=== PATIENT | male | born 1990 | race Caucasian/White ===

== ENCOUNTER 2022-12-30 14:12 | Outpatient (AMB) | payer OTHER, SELFPAY ==
[2022-12-30 14:22] VITALS: BP 130/88; PULSE 76; O2SAT 98; BMI 32.7
--- NOTE | 2022-12-30 14:22 | MHC.PC.OV ---
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 Will order labs. HTN: will have him take his BP at home, writing down values, will drop values off. [facility] Family History Father Substance use disorder Brother Substance use disorder Mental health disorder Mother Mental health disorder Brother Mental health disorder Maternal Uncle Mental health disorder Paternal Uncle Mental health disorder Social History Housing: Apartment Patient Tobacco Use Status: Current everyday Tobacco user Tobacco use type: Cigarette Cigarettes Per Day: 3 e-Cigarette/Vaping Use: Never Used Second Hand Smoke Exposure: No service: No Current occupational status: employed Current occupation: [employer] Current occupational exposures/hazards: No Cognitive needs: No Hearing needs: No Vision needs: No Questionnaire PHQ-9 Over the last 2 weeks, how often have you been bothered by any of the following problems? 1. Little interest or pleasure in doing things: not at all 2. Feeling down, depressed, or hopeless: not at all 3. Trouble falling or staying asleep, or sleeping too much: several days 4. Feeling tired or having little energy: not at all 5. Poor appetite or overeating: not at all 6. Feeling bad about yourself - or that you are a failure or have let yourself or your family down: not at all 7. Trouble concentrating on things, such as reading the newspaper or watching television: not at all 8. Moving or speaking so slowly that other people could have noticed. Or the opposite - being so fidgety or restless that you have been moving around a lot more than usual: not at all 9. Thoughts that you would be better off or of hurting yourself in some way: not at all Total score: 1 Source: Developed by Drs. Loy Burks, Ani Mederos, Chaitanya Lauren and colleagues, with an educational marko from [employer]. Thrive Questionnaire Date Thrive assessed: 12/30/22 I am a: Patient What is your living situation today?: I have a steady place to live Within the past 12 months, did the food you bought not last and you didn't have the money to get more?: Often true Within the past 12 months, did you worry whether your food would run out before you got money to buy more?: Often true Do you have trouble paying for medicines?: No Do you have trouble getting transportation to medical appointments?: No Do you have trouble paying your heating and electricity bill?: No Do you have trouble taking care of your child, family member or friend?: No Do you have trouble with day-to-day activities such as bathing, preparing meals, shopping, managing finances, etc.?: No Are you currently unemployed and looking for a job?: No Are you interested in more education?: Yes Please select the resources that you would like help with: Housing/Group Home and Food AUDIT C Alcohol Use Questionnaire (AUDIT-C) 1. How often do you have a drink containing alcohol?: Monthly or less 2. How many drinks containing alcohol do you have on a typical day when you are drinking?: 1 or 2 3. How often do you have six or more drinks on one occasion?: Never Total Score: 1 MAYE-7 AMB Questionnaire MAYE-7 Date MAYE - 7 assessed: 12/30/22 Feeling nervous, anxious, or on edge: 1 = Several days Not being able to stop or control worryin = Several days Worrying too much about different things: 1 = Several days Trouble relaxin = Several days Being so restless that it is hard to sit still: 1 = Several days Becoming easily annoyed or irritable: 1 = Several days Feeling afraid as if something awful might happen: 1 = Several days Total MAYE-7 score (0-4 normal; 5-9 mild; 10-14 moderate; 15-21 severe): 7 Source: Developed by Drs. Loy Burks, Ani Mederos, Chaitanya Lauren and colleagues, with an educational marko from [employer]. Review of Systems Const Denies chills and Denies fever(s) Eyes Denies blurry vision ENT Denies vertigo, Denies dizziness and Denies sore throat Card Denies chest pain at rest, Denies chest pain with activity, Denies diaphoresis, Denies dyspnea and Denies dyspnea on exertion Resp Denies cough, Denies dyspnea, Denies dyspnea on exertion and Denies wheezing GI Denies abdominal pain, Denies melena, Denies hematochezia, Denies constipation, Denies diarrhea and Denies loose stools Denies hematuria Musc Denies numbness and Denies tingling Skin/Breast Denies lesions Neuro Denies vertigo, Denies dizziness, Denies numbness and Denies tingling Psych Denies anxiety, Denies depression, Denies homicidal ideation, Denies suicidal ideation and Denies other (substance abuse) Aller/Immun Denies wheezing Physical exam (Primary Care) Vital Signs: Last Vital Signs Pulse 76 12/30/22 14:22 BP 130/88 12/30/22 14:22 Pulse Ox 98 12/30/22 14:22 Oxygen Delivery Method Room Air 12/30/22 14:22 BMI result Body Mass Index 32.7 Tobacco/Smoking Status: Tobacco use Status Tobacco use date assessed 12/30/22 12/30/22 14:31 Patient Tobacco Use Status Current everyday Tobacco 12/30/22 14:31 Tobacco use type Cigarette 12/30/22 14:31 e-Cigarette/Vaping Use Never Used 12/30/22 14:31 Const General: cooperative Nutritional Appearance: obese Orientation/consciousness: patient oriented x3 HENMT Head: Yes normal to inspection, Yes normocephalic and Yes atraumatic Ears: TM's normal bilaterally Eyes General: appearance normal, both eyes and all related structures Alignment and Position: alignment normal and position normal Neck Neck: Yes normal visual inspection and Yes no lymphadenopathy Thyroid: Thyroid normal Resp Effort & Inspection: normal respiratory effort Auscultation: clear to auscultation bilaterally Cardio Rate: regular rate Rhythm: regular rhythm Heart sounds: S1 normal heart sound present, S2 normal heart sound present and no murmurs GI Palpation (GI): Soft to palpation and nontender Auscultation: normal bowel sounds Other: refused testicular exam Skin Rashes: no rashes Neuro General: patient oriented x3, moves all extremities, no focal motor deficits and deep tendon reflexes 2+ bilaterally Romberg Test: Negative Psych Appearance: grossly normal Mental Status: mental status grossly normal Speech and movement: Normal speech and movement present Affect: normal affect Attitude: cooperative Thought process: Normal thought process present Thought content: Normal thought content present Insight: Good insight present (Psych) Judgement: Good judgement present (Psych) Assessment and Plan Assessment & Plan (1) Physical exam: Code(s): Z00.00 - Encounter for general adult medical examination without abnormal findings Plan: Labs ordered (2) HTN (hypertension): Code(s): I10 - Essential (primary) hypertension Plan The patient agreed to the use of a medical legal investigator for this encounter. Scribed for HAILEY Eddy by Bella Ramirez medical legal investigator, on 12/30/2022 at 14:40 EST. Orders: Orders Comprehensive [place]. Panel Fast Today Z00.00 - Encounter for general adult medical examination without abnormal findings Lipid Panel Today Z00.00 - Encounter for general adult medical examination without abnormal findings TSH reflex Free T4 Today Z00.00 - Encounter for general adult medical examination without abnormal findings Complete Blood Count Auto Diff Today Z00.00 - Encounter for general adult medical examination without abnormal findings UA CC w/rflx Micro + Cult Today Z00.00 - Encounter for general adult medical examination without abnormal findings Coding Level of Care Code New Pt Prev Care 18-39yr([id number] Diagnoses Physical exam Z00.00 HTN (hypertension) I10
== END 2022-12-30 15:20 | disposition home or self-care (01) ==
PROVIDERS: Visit Provider Nurse Practitioner Family
DX: Z00.00 Encounter for general adult medical examination without abnormal findings (principal); I10 Essential (primary) hypertension
CPT/HCPCS: 99385

== ENCOUNTER 2023-03-31 12:30 | Outpatient (REF) | payer OTHER, SELFPAY ==
[2023-03-31 16:07] LABS: MANUAL DIFF FLAG NO
[2023-03-31 16:23] LABS: Basophils Percent Auto 0.5 % (0-2); Eosinophils Absolute Auto 0.2 X10*3/uL (0.0-0.4); Eosinophils Percent Auto 2.1 % (0-4); Hematocrit 44.5 % (42.0-52.0); Hemoglobin 14.7 g/dl (14.0-18.0); Imm Gran Abs Auto 0.02 X10*3/uL (0.00-0.03); Imm Gran Pct Auto 0.2 % (0.0-0.4); Lymphocytes Absolute Auto 1.9 X10*3/uL (1.2-4.9); Lymphocytes Percent Auto 22.7 % (20-40); Mean Corpuscular Hemoglobin 29.6 pg (27.0-33.0); Mean Corpuscular Volume 89.7 fL (80.0-98.0); Mean Platelet Volume 9.6 fL (9.4-12.4); Monocytes Absolute Auto 0.5 X10*3/uL (0.1-1.2); Monocytes Percent Auto 6.2 % (2-11); Neutrophils Absolute Auto 5.6 x10*3/uL (2.0-8.3); Neutrophils Percent Auto 68.3 % (45-73); Platelet Count 258 X10*3/uL (160-400); Red Blood Count 4.96 X10*6/uL (4.60-5.80); Red Cell Distribution Width 11.9 % (11.0-16.0); White Blood Count 8.2 X10*3/uL (4.8-10.8)
[2023-03-31 16:31] LABS: Appearance Urine Clear; Color Urine Yellow; Glucose Urine UA Negative (Negative); Leukocyte Esterase Urine Negative (Negative); Nitrite Urine Negative (Negative); PH 5.5 (5.0-9.0); Specific Gravity - Urine 1.025 (1.005-1.025); UMIC TRIGGER UACC YES; Urine Blood Trace (Negative); Urine Ketones Negative (Negative); Urine Protein Negative (Neg-Trace)
[2023-03-31 16:37] LABS: Bacteria Urine None Seen (None Seen); Hyaline Casts Urine 0-2 /LPF (0-2); Squamous Epithelial Cell Urine 0-2 /HPF (0-2); WBC Urine 0-5 /HPF (0-5)
[2023-03-31 16:51] LABS: Alanine Aminotransferase 67 U/L (0-40); Albumin Level 4.8 g/dL (3.5-5.0); Alkaline Phosphatase 46 U/L (39-117); Anion Gap 13 (12-20); Aspartate Amino Transferase 31 U/L (5-37); Blood Urea Nitrogen 12 mg/dL (9-16); Calcium 9.8 mg/dL (8.4-10.2); Carbon Dioxide 28 mmol/L (22-29); Chloride 103 mmol/L (96-108); Cholesterol 136 mg/dL (<200); Estimated Glomerular Filt Rate > 60; Glucose Fasting 84 mg/dL (60-99); HDL Cholesterol 44 mg/dL (>40); LDL Cholesterol Calculated 73 mg/dL (<100); Potassium 3.8 mmol/L (3.3-5.1); Sodium 140 mmol/L (135-145); Total Protein 8.2 g/dL (6.5-8.0); Triglycerides 97 mg/dL (<150)
[2023-03-31 17:08] LABS: TSH reflex Free T4 1.23 uIU/mL (0.32-4.0)
== END 2023-03-31 12:31 | disposition home or self-care (01) ==
LOC: HO.HMGCLDS 12:30
PROVIDERS: PCP Nurse Practitioner Family; Visit Provider Nurse Practitioner Family
DX: Z00.00 Encounter for general adult medical examination without abnormal findings (principal)
CPT/HCPCS: 36415; 80053; 80061; 81001; 84443; 85025

== ENCOUNTER 2023-04-08 13:00 | Outpatient (AMB) | payer OTHER, SELFPAY ==
--- NOTE | 2023-04-08 13:01 | A.OFFPC_ITS ---
Vital Signs 04/08/23 13:05 Height 5 ft 11 in Weight 245 lb BMI 34.2 BP 118/76 Blood Pressure Location Rt brachial Position Sitting Pulse 78 Pulse Source Pulse Oximeter Pulse Oximetry (%) 98 Oxygen Delivery Method Room Air Intake Visit Reasons: 3 month fu Allergies No Known Allergies Allergy (Verified 04/08/23 13:05) Medication List - Last Reconciled 04/08/23 by HAILEY Hahn No Known Home Meds Tobacco use date assessed: 12/30/22 HPI 3 month fu HPI Details Pt reports that 4-5 years ago he had a pustule on the base of his penile shaft that was drained. He states that around 03/26 he noticed penile discharge that is yellow/white in color. He also developed burning with urination and small amount of hematuria this morning. Pt was seen at an urgent care and was tested for STIs. He was treated prophylactically for chlamydia and gonorrhea, though testing was later negative. Micro hem noted 1.5 weeks ago. Denies any known hx of kidney stones. He does smoke intermittently. Will order repeat STI testing, UA, culture, cytology, and CT urogram. Will also refer to urology. Denies fever, chills, N/V, and flank pain. HTN: Blood pressure is st able today. Pt does not check his blood pressure at home though he has a cuff, encouraged him to do so. Denies chest pain, shortness of breath, headache, dizziness, and blurred vision. [facility] Family History Father Substance use disorder Brother Substance use disorder Mental health disorder Mother Mental health disorder Brother Mental health disorder Maternal Uncle Mental health disorder Paternal Uncle Mental health disorder Social History Housing: Apartment Patient Tobacco Use Status: Current everyday Tobacco user Tobacco use type: Cigarette Cigarettes Per Day: 3 e-Cigarette/Vaping Use: Never Used Second Hand Smoke Exposure: No service: No Current occupational status: employed Current occupation: [employer] Current occupational exposures/hazards: No Cognitive needs: No Hearing needs: No Vision needs: No Questionnaire Thrive Questionnaire Date Thrive assessed: 12/30/22 I am a: Patient What is your living situation today?: I have a place to live, but I am worried about losing it in the future Within the past 12 months, did you worry whether your food would run out before you got money to buy more?: Sometimes True Please select the resources that you would like help with: Housing/Custodial and Food AUDIT C Alcohol Use Questionnaire (AUDIT-C) 1. How often do you have a drink containing alcohol?: Never 3. How often do you have six or more drinks on one occasion?: Never Total Score: 0 MAYE-7 AMB Questionnaire MAYE-7 Date MAYE - 7 assessed: 12/30/22 Feeling nervous, anxious, or on edge: 1 = Several days Not being able to stop or control worryin = Several days Worrying too much about different things: 2 = More than half the days Trouble relaxin = Several days Being so restless that it is hard to sit still: 1 = Several days Becoming easily annoyed or irritable: 1 = Several days Feeling afraid as if something awful might happen: 1 = Several days Total MAYE-7 score (0-4 normal; 5-9 mild; 10-14 moderate; 15-21 severe): 8 Source: Developed by Drs. Loy Burks, Ani Mederos, Chaitanya Lauren and colleagues, with an educational marko from [employer]. Review of Systems Const Reports as per HPI Physical exam (Primary Care) Vital Signs: Last Vital Signs Pulse 78 04/08/23 13:05 BP 118/76 04/08/23 13:05 Pulse Ox 98 04/08/23 13:05 Oxygen Delivery Method Room Air 04/08/23 13:05 BMI result Body Mass Index 34.2 Tobacco/Smoking Status: Tobacco use Status Tobacco use date assessed 12/30/22 04/08/23 13:02 Patient Tobacco Use Status Current everyday Tobacco 04/08/23 13:02 Tobacco use type Cigarette 04/08/23 13:02 e-Cigarette/Vaping Use Never Used 04/08/23 13:02 Thrive Assessment: Date of Thrive Assessment Date Thrive assessed 12/30/22 04/08/23 13:02 Const General: cooperative Nutritional Appearance: obese Orientation/consciousness: patient oriented x3 Resp Effort & Inspection: normal respiratory effort Auscultation: clear to auscultation bilaterally Cardio Rate: regular rate Rhythm: regular rhythm Heart sounds: S1 normal heart sound present and S2 normal heart sound present Other: residual scarring to inferior base of penis, skin tag noted General: Yes no CVA tenderness Back/Spine/Pelvis Back: no CVA tenderness Neuro General: patient oriented x3 Psych Appearance: grossly normal Mental Status: mental status grossly normal Speech and movement: Normal speech and movement present Affect: normal affect Attitude: cooperative Thought process: Normal thought process present Thought content: Normal thought content present Insight: Good insight present (Psych) Judgement: Good judgement present (Psych) Results AMB Urinalysis, Automated UA Leukoctes 0 Onel/uL Last Edit by Tyrone Melvin CCM on 04/08/23 14:02 UA Nitrite Negative Last Edit by Tyrone Melvin [facility] on 04/08/23 14:02 UA Urobilinogen 0.2 mg/dL Last Edit by Tyrone Melvin [facility] on 04/08/23 14:02 UA Protein 0 mg/dL Last Edit by Tyrone Melvin [facility] on 04/08/23 14:02 UA pH 6.0 Last Edit by Tyrone Melvin [facility] on 04/08/23 14:02 UA Blood 25 Carlos/uL Last Edit by Tyrone Melvin [facility] on 04/08/23 14:02 UA Specific [place] 1.030 Last Edit by Tyrone Melvin [facility] on 04/08/23 14:02 UA Ketone Negative Last Edit by Tyrone Melvin [facility] on 04/08/23 14:02 UA Bilirubin 0 mg/dL Last Edit by Tyrone Melvin [facility] on 04/08/23 14:02 UA Glucose 0 mg/dL Last Edit by Tyrone Melvin [facility] on 04/08/23 14:02 Results Reviewed Results Reviewed: Laboratory Last Values Urine pH (Auto) 6.0 04/08/23 14:00 Specific [place] (Auto) 1.030 04/08/23 14:00 Urine Protein (Auto) 0 mg/dL 04/08/23 14:00 Glucose (UA)(Auto) 0 mg/dL 04/08/23 14:00 Urine Ketones (Auto) Negative 04/08/23 14:00 Urine Blood (Auto) 25 Carlos/uL 04/08/23 14:00 Urine Nitrite (Auto) Negative 04/08/23 14:00 Urine Bilirubin (Auto) 0 mg/dL 04/08/23 14:00 Urine Urobilinogen (Auto) 0.2 mg/dL 04/08/23 14:00 Leukocyte Esterase (Auto) 0 Onel/uL 04/08/23 14:00 Assessment and Plan Assessment & Plan (1) Microscopic hematuria: Code(s): R31.29 - Other microscopic hematuria Plan: STI testing, UA, culture, cytology, and CT urogram ordered (2) Penile discharge: Code(s): R36.9 - Urethral discharge, unspecified Plan: STI testing, UA, culture, cytology, and CT urogram ordered (3) Hematuria: Code(s): R31.9 - Hematuria, unspecified Plan The patient agreed to the use of a medical clerk for this encounter. Scribed for MARISELA Eddy- by Bella Ramirez medical clerk, on 04/08/2023 at 13:20 EST. Orders: Orders Urine Culture Today R31.29 - Other microscopic hematuria Urine Cytology Today R31.29 - Other microscopic hematuria Hepatitis A,B,C Profile Today R31.29 - Other microscopic hematuria, R36.9 - Urethral discharge, unspecified CT urogram Today R31.9 - Hematuria, unspecified, R36.9 - Urethral discharge, unspecified AMB Urinalysis Automated Today Z13.9 - Encounter for screening, unspecified UA CC w/rflx Micro + Cult Today R31.29 - Other microscopic hematuria Syphilis Screen Today R31.29 - Other microscopic hematuria, R36.9 - Urethral discharge, unspecified HIV Ab/Ag Today R31.29 - Other microscopic hematuria, R36.9 - Urethral discharge, unspecified CT NG by PCR Today R31.29 - Other microscopic hematuria, R36.9 - Urethral discharge, unspecified Referrals Urology Referral R31.9 - Hematuria, unspecified, R36.9 - Urethral discharge, unspecified Coding Level of Care Code Est Pt Level 3 (02822) Diagnoses Microscopic hematuria R31.29 Penile discharge R36.9 Hematuria R31.9
[2023-04-08 13:05] VITALS: BP 118/76; PULSE 78; O2SAT 98; BMI 34.2
== END 2023-04-08 15:55 | disposition home or self-care (01) ==
PROVIDERS: PCP Nurse Practitioner Family; Visit Provider Nurse Practitioner Family
DX: R31.29 Other microscopic hematuria (principal); R36.9 Urethral discharge, unspecified; R31.9 Hematuria, unspecified
CPT/HCPCS: 81003; 99213

== ENCOUNTER 2023-04-08 14:12 | Outpatient (REF) | payer OTHER, SELFPAY ==
[2023-04-08 16:10] LABS: Urine Cytology See Pathology rpt
[2023-04-09 03:43] LABS: Syphilis Screen Nonreactive (Nonreactive)
[2023-04-09 03:44] LABS: CT PCR NOT DETECTED (Not Detect.); NG PCR NOT DETECTED (Not Detect.)
[2023-04-09 03:51] LABS: HBc Num1 0.06 S/CO (0.00-0.79); HBsAGNum1 0.28 S/CO (0.00-0.99); Hepatitis A Antibody IgM 0.15 Index (0-0.79); Hepatitis B Core Antibody Nonreactive (Nonreactive); Hepatitis B Surface Antigen Negative (Negative); ~HepC Num1 0.11 S/CO (0.00-0.79); ~Hepatitis A Antibody IgM Nonreactive (Nonreactive); ~Hepatitis B Surface Antibody REACTIVE (Nonreactive); ~Hepatitis C Antibody Nonreactive (Nonreactive)
[2023-04-09 04:08] LABS: HIV AB/AG Nonreactive (Nonreactive); HIV Num 1 0.05 S/CO (0.00-0.99)
== END 2023-04-08 14:13 | disposition home or self-care (01) ==
LOC: HO.HMGCLDS 14:12
PROVIDERS: PCP Nurse Practitioner Family; Visit Provider Nurse Practitioner Family
DX: R31.29 Other microscopic hematuria (principal); R36.9 Urethral discharge, unspecified
CPT/HCPCS: 0353U; 36415; 86704; 86706; 86709; 86780; 86803; 87086; 87340; 87389; 88112

== ENCOUNTER 2023-05-07 10:59 | Outpatient (AMB) | payer OTHER, SELFPAY ==
--- NOTE | 2023-05-07 11:00 | MHC.OFFVIS ---
Intake Intake Visit Reasons: Hematuria, unspecified Intake Note: New Patient presents for initial visit for Hematuria Urology Medications: none Blood Thinner: none Grease Renderer Required: No Accompanied by: Self / Same As Patient Allergies No Known Allergies Allergy (Verified 05/07/23 12:01) Medication List - Last Reconciled 05/07/23 by HAILEY Panda doxycycline hyclate 100 mg PO BID 30 days HPI HPI Comments History of Present Illness Details Rajesh is a very pleasant 32-year-old male patient of Dr. Tanner. He presents to the office today as a new patient for gross hematuria. In discussion with the patient today he reports noting over the last 2 months to be having intermittent episodes of gross hematuria as well as penile discharge. He reports having followed up with an urgent care and had STD testing was ordered and performed and all testing was reported negative. He also discusses having had treatment for gonorrhea despite negative STD testing/workup. He reports he continues with episodes of gross hematuria at which time recommendations were made for Urology follow-up. When asked he does report over a 10 year history of smoking/nicotine dependence. He reports smoking approximately half a pack per day as well as recreational marijuana daily. He also discusses having previously followed up with [facility] in the past for sebaceous cyst due to shaving and feels he continues to have issues with this as well. In assessment of the patient today the penis is uncircumcised and multiple very small sebaceous cyst along the shaft of the penis are noted. No open areas or redness noted. Discussed at length potential causes of gross hematuria. He otherwise denies urinary urgency, urinary frequency, incontinence, nocturia, dysuria, foul smelling urine, changes to urinary stream, flank pain, fever, and or chills. Discussed at length further gross hematuria workup with urine cytology, CT urogram, and in office cystoscopy. Discussed risks and benefits of further workup versus surveillance monitoring at length. He otherwise offers no issues or concerns at this time. [facility] Family History Father Substance use disorder Brother Substance use disorder Mental health disorder Mother Mental health disorder Brother Mental health disorder Maternal Uncle Mental health disorder Paternal Uncle Mental health disorder Social History Housing: Apartment Patient Tobacco Use Status: Current everyday Tobacco user Tobacco use type: Cigarette Cigarettes Per Day: 3 e-Cigarette/Vaping Use: Never Used Second Hand Smoke Exposure: No service: No Current occupational status: employed Current occupation: [employer] Current occupational exposures/hazards: No Cognitive needs: No Hearing needs: No Vision needs: No Review of Systems Const Reports as per HPI Eyes Reports no additional complaints ENT Reports no additional complaints Card Reports no additional complaints Resp Reports no additional complaints GI Reports no additional complaints Reports as per HPI Musc Reports no additional complaints Neuro Reports no additional complaints Psych Reports no additional complaints Endo Reports no additional complaints Shankar/Lymph Reports no additional complaints Aller/Immun Reports no additional complaints Physical Exam Const General: cooperative, healthy appearing, comfortable, no acute distress, well developed, alert and awake Orientation/consciousness: patient oriented x3 Limitations: no limitations HEENT Head: Yes normal to inspection, Yes normocephalic and Yes atraumatic Ears: hearing grossly normal bilaterally Eyes General: appearance normal, both eyes and all related structures Neck Neck: Yes normal visual inspection and Yes trachea midline Chest Chest palpation & inspection: normal inspection of the chest Resp Effort & Inspection: normal respiratory effort and able to speak in complete sentences Cardio Rate: regular rate GI Inspection: Yes normal to inspection General: Yes no CVA tenderness Penis: normal penis and uncircumcised Meatus: meatus normal Scrotum: other (per HPI) Testes: Testes normal Back/Spine/Pelvis Back: no CVA tenderness Skin General skin exam: no rashes or lesions noted Neuro General: patient oriented x3 Extrem General: Yes normal to inspection Psych Appearance: grossly normal and well kempt Mental Status: mental status grossly normal Speech and movement: Normal speech and movement present and Clear speech present Affect: normal affect Attitude: cooperative Thought process: Normal thought process present Thought content: Normal thought content present Insight: Fair insight present (Psych) Judgement: Fair judgement present (Psych) Results AMB Urinalysis, Automated UA Leukoctes 15 Onel/uL Last Edit by Ermias Fields on 05/07/23 11:20 UA Nitrite Negative Last Edit by sofatronicofelia Fields on 05/07/23 11:20 UA Urobilinogen 0.2 mg/dL Last Edit by BABADU Diamond on 05/07/23 11:20 UA Protein 15 mg/dL Last Edit by Ermias Fields on 05/07/23 11:20 UA pH 5.5 Last Edit by Ermias Caceresal on 05/07/23 11:20 UA Blood 25 Carlos/uL Last Edit by Ermias Caceresal on 05/07/23 11:20 UA Specific [place] 1.025 Last Edit by Ermias Caceresal on 05/07/23 11:20 UA Ketone Negative Last Edit by Ermias Caceresal on 05/07/23 11:20 UA Bilirubin 0 mg/dL Last Edit by Ermias Caceresal on 05/07/23 11:20 UA Glucose 0 mg/dL Last Edit by Ermias Caceresal on 05/07/23 11:20 Results Reviewed Results Reviewed: Laboratory Last Values Urine pH (Auto) 5.5 05/07/23 11:01 Specific [place] (Auto) 1.025 05/07/23 11:01 Urine Protein (Auto) 15 mg/dL 05/07/23 11:01 Glucose (UA)(Auto) 0 mg/dL 05/07/23 11:01 Urine Ketones (Auto) Negative 05/07/23 11:01 Urine Blood (Auto) 25 Carlos/uL 05/07/23 11:01 Urine Nitrite (Auto) Negative 05/07/23 11:01 Urine Bilirubin (Auto) 0 mg/dL 05/07/23 11:01 Urine Urobilinogen (Auto) 0.2 mg/dL 05/07/23 11:01 Leukocyte Esterase (Auto) 15 Onel/uL 05/07/23 11:01 Assessment & Plan Assessment & Plan (1) Gross hematuria: Code(s): R31.0 - Gross hematuria (2) Nicotine dependence: Code(s): F17.200 - Nicotine dependence, unspecified, uncomplicated (3) Sebaceous cyst of scrotum: Code(s): L72.3 - Sebaceous cyst Plan In office urinalysis results reviewed with the patient today; as noted above; will send for urine cytology. Discussed at length potential causes for gross hematuria; discussed risks and benefits of surveillance monitoring verses further workup Will obtain CT urogram for further assessment evaluation. BUN and creatinine ordered for imaging. Start doxycycline as discussed and prescribed. Discussed possible near future surgical procedure with laser removal of sebaceous cyst however will further assess upon completion of doxycycline as discussed. Discussed, educated, encouraged on the importance of drinking plenty of water daily. Discussed, educated, and stressed the importance of limiting/quitting nicotine dependence as well as recreational marijuana for overall health and well-being. Follow-up in office cystoscopy with imaging and labs to be completed prior; or sooner with any issues, concerns, and or questions. Orders: Orders Urine Cytology 05/07/23 R31.9 - Hematuria, unspecified Creatinine 05/07/23 R39.15 - Urgency of urination AMB Urinalysis Automated 05/07/23 Z13.9 - Encounter for screening, unspecified CT urogram 05/07/23 R31.0 - Gross hematuria Blood Urea Nitrogen 05/07/23 R39.15 - Urgency of urination Medications: New doxycycline hyclate 100 mg PO BID 30 days 60 tabs 0RF Patient Instructions: The patient had an opportunity to ask questions regarding the treatment plan. All questions were answered. Physical exam, labs, and imaging were discussed and reviewed in detail. As well as risks, benefits, and discussion of treatment choices. No major barriers to understanding were identified. The patient expressed understanding and agreement with the above treatment plan. The patient was made aware they should contact our office by phone for worsening of their current condition, the appearance of new symptoms, or with any questions or concerns. Compliance is encouraged with any medications and follow up testing that is ordered. It is a privilege to be allowed the opportunity to participate in? your urological care.? Again, if you have any questions or concerns If you have any questions or concerns please do not hesitate to contact me. The office is [phone]. This note is constructed using voice recognition software. While every effort has been made to ensure accuracy rand cementer errors may have been included. Yours sincerely, HAILEY Panda Coding Level of Care Code New Pt Level 4 (32318) Diagnoses Gross hematuria R31.0 Nicotine dependence F17.200 Sebaceous cyst of scrotum L72.3
== END 2023-05-07 12:04 | disposition home or self-care (01) ==
PROVIDERS: PCP Nurse Practitioner Family; Visit Provider Nurse Practitioner Family
DX: R31.0 Gross hematuria (principal); F17.200 Nicotine dependence, unspecified, uncomplicated; L72.3 Sebaceous cyst
CPT/HCPCS: 99204

== ENCOUNTER 2023-05-07 10:59 | Outpatient (REF) | payer OTHER, SELFPAY | END 2023-05-07 11:00 | disposition home or self-care (01) | LOC: HO.LNP 10:59 | PROVIDERS: PCP Nurse Practitioner Family; Visit Provider Nurse Practitioner Family | DX: R31.0 Gross hematuria (principal); R39.15 Urgency of urination; R36.9 Urethral discharge, unspecified | CPT/HCPCS: 81003; 99202 ==

== ENCOUNTER 2023-05-07 12:07 | Outpatient (REF) | payer OTHER, SELFPAY ==
[2023-05-07 13:11] LABS: Blood Urea Nitrogen 12 mg/dL (9-16); Estimated Glomerular Filt Rate > 60
== END 2023-05-07 12:08 | disposition home or self-care (01) ==
LOC: HO.LAB 12:07
PROVIDERS: PCP Nurse Practitioner Family; Visit Provider Nurse Practitioner Family
DX: R39.15 Urgency of urination (principal); R31.9 Hematuria, unspecified
CPT/HCPCS: 36415; 82565; 84520; 88112

== ENCOUNTER 2023-05-26 08:35 | Outpatient (REF) | payer OTHER, SELFPAY ==
--- NOTE | ~2023-05-26 | CT_ITS ---
EXAMINATION: CT ABDOMEN AND PELVIS WITHOUT AND WITH CONTRAST CLINICAL INFORMATION: Gross hematuria. COMPARISON: None available. TECHNIQUE: Noncontrast CT of the abdomen and pelvis is performed followed by split bolus contrast-enhanced images using 85 mL Omnipaque 350 contrast.? Postcontrast imaging is performed during the combined nephrogram and excretion phase. Sagittal and coronal reformatted images were obtained on the technologist's workstation for both the precontrast and postcontrast phases. This CT examination was performed using dose optimization techniques as appropriate, variously including the following: *Automated exposure control *Adjustment of mA and/or kV according to patient size (this includes techniques or standardized protocols for targeted exams where dose is matched to indication/reason for exam; i.e. extremities or head) *Use of iterative reconstruction technique DLP: 1202 mGy-cm FINDINGS: LUNG BASES: There is bibasilar dependent hypoaeration. LIVER, GALLBLADDER, AND BILIARY TREE: The liver is normal in size, shape, and attenuation. No focal hepatic lesion or biliary ductal dilatation is present. The gallbladder is unremarkable with no evidence of radiopaque gallstones, gallbladder wall thickening, or obvious pericholecystic inflammatory changes. PANCREAS: Unremarkable. SPLEEN: Unremarkable. ADRENAL GLANDS: Unremarkable. KIDNEYS AND URETERS: The kidneys are normal in size, shape, and attenuation. There is a right extrarenal pelvis. No hilar hydronephrosis, hydroureter, or calculi seen. No perinephric stranding. BLADDER: Unremarkable. GASTROINTESTINAL TRACT: The small and large bowel are unremarkable. The appendix is unremarkable. ABDOMINAL WALL: There are small fat-containing bilateral inguinal hernias. LYMPH NODES: Normal. VASCULAR: Unremarkable. PELVIC VISCERA: The prostate and seminal vessicles are unremarkable. OSSEUS STRUCTURES: At L3-L4, there is moderate degenerative disc disease, with disc space narrowing, vacuum disc phenomenon at and anterior spondylosis. No acute or aggressive osseous finding is seen. CT/CT urogram IMPRESSION: No significant abnormality.
[2023-05-26] MEDS: iohexoL 350 MG/ML 75 ML INFUS..BTL 85 ML IV (09:20)
== END 2023-05-26 08:36 | disposition home or self-care (01) ==
LOC: HO.CT 08:35
PROVIDERS: PCP Nurse Practitioner Family; Referring Provider Nurse Practitioner Family; Visit Provider Nurse Practitioner Family
DX: R31.0 Gross hematuria (principal); R36.9 Urethral discharge, unspecified; R31.9 Hematuria, unspecified
CPT/HCPCS: 74178; Q9967

== ENCOUNTER 2023-06-17 10:37 | Outpatient (AMB) | payer OTHER, SELFPAY ==
--- NOTE | 2023-06-17 10:55 | MHC.OFFVIS ---
Intake Intake Visit Reasons: cysto/CT Intake Note: Patient presents today for a Cystoscopy Meds: None Allergies to Antibiotic: No Known Allergies Blood Thinner: None Urinalysis test clear for Cysto: Yes Disposable Uro-G Cystoscope Cannula [id number] 09/13/2024 Travel Writer Required: No Accompanied by: Self / Same As Patient Allergies No Known Allergies Allergy (Verified 06/17/23 10:58) HPI HPI Comments History of Present Illness Details 06/17/23-- Rajesh is here for office cystoscopy. I have reviewed CT Urogram results with the patient. Urinary tract, kidneys and bladder were within normal limits. The patient's UA today still persistent microscopic hematuria. Comorbidity nicotine dependency. The patient expressed concerns regarding the office cystoscopy so I had a lengthy discussion with the patient. I discussed in detail how the office cystocopy procedure is done and the use of local lidocaine. The patient was very hesitant regarding having the procedure in the office and I explained that the cystoscopy can be done as an outpatient under sedation or anesthesia. The patient decided to have the offfice cystoscopy; but when the nurse presented to start the prep he stated he had waited too long and he did not want to do the procedure any longer. I returned to the room and the patient stated his anxiety had increased and he now wants another urologist to perform the cystoscopy as an outpatient. Review of chart: 05/07/23-- seen as new patient evaluation by ARLEN Moreno 05/07/23--Rajesh is a very pleasant 32-year-old male patient of Dr. Tanner. He presents to the office today as a new patient for gross hematuria. In discussion with the patient today he reports noting over the last 2 months to be having intermittent episodes of gross hematuria as well as penile discharge. He reports having followed up with an urgent care and had STD testing was ordered and performed and all testing was reported negative. He also discusses having had treatment for gonorrhea despite negative STD testing/workup. He reports he continues with episodes of gross hematuria at which time recommendations were made for Urology follow-up. When asked he does report over a 10 year history of smoking/nicotine dependence. He reports smoking approximately half a pack per day as well as recreational marijuana daily. He also discusses having previously followed up with [facility] in the past for sebaceous cyst due to shaving and feels he continues to have issues with this as well. In assessment of the patient today the penis is uncircumcised and multiple very small sebaceous cyst along the shaft of the penis are noted. No open areas or redness noted. Discussed at length potential causes of gross hematuria. He otherwise denies urinary urgency, urinary frequency, incontinence, nocturia, dysuria, foul smelling urine, changes to urinary stream, flank pain, fever, and or chills. Discussed at length further gross hematuria workup with urine cytology, CT urogram, and in office cystoscopy. Discussed risks and benefits of further workup versus surveillance monitoring at length. He otherwise offers no issues or concerns at this time. 06/17/23--Plan- pt requests cystoscopy as outpatient due to anxiety. [facility] Family History Father Substance use disorder Brother Substance use disorder Mental health disorder Mother Mental health disorder Brother Mental health disorder Maternal Uncle Mental health disorder Paternal Uncle Mental health disorder Social History Housing: Apartment Patient Tobacco Use Status: Current everyday Tobacco user Tobacco use type: Cigarette Cigarettes Per Day: 3 e-Cigarette/Vaping Use: Never Used Second Hand Smoke Exposure: No service: No Current occupational status: employed Current occupation: [employer] Current occupational exposures/hazards: No Cognitive needs: No Hearing needs: No Vision needs: No Review of Systems Const Reports as per HPI Eyes Reports no additional complaints ENT Reports no additional complaints Card Reports no additional complaints Resp Reports no additional complaints GI Reports no additional complaints Reports as per HPI Musc Reports no additional complaints Neuro Reports no additional complaints Psych Reports no additional complaints Endo Reports no additional complaints Shankar/Lymph Reports no additional complaints Aller/Immun Reports no additional complaints Results AMB Urinalysis, Automated UA Leukoctes 125 Onel/uL Last Edit by Gail Fox CMA on 06/17/23 11:02 UA Nitrite Negative Last Edit by Gail Fox CMA on 06/17/23 11:02 UA Urobilinogen 0.2 mg/dL Last Edit by Gail Fox CMA on 06/17/23 11:02 UA Protein 30 mg/dL Last Edit by Gail Fox CMA on 06/17/23 11:02 UA pH 5.5 Last Edit by [facility] on 06/17/23 11:02 UA Blood 80 Carlos/uL Last Edit by [facility], [facility] on 06/17/23 11:02 UA Specific [place] 1.030 Last Edit by [facility], [facility] on 06/17/23 11:02 UA Ketone Negative Last Edit by [facility], [facility] on 06/17/23 11:02 UA Bilirubin 0 mg/dL Last Edit by [facility], [facility] on 06/17/23 11:02 UA Glucose 0 mg/dL Last Edit by [facility], [facility] on 06/17/23 11:02 Results Reviewed Results Reviewed: Laboratory Last Values Urine pH (Auto) 5.5 06/17/23 11:00 Specific [place] (Auto) 1.030 06/17/23 11:00 Urine Protein (Auto) 30 mg/dL 06/17/23 11:00 Glucose (UA)(Auto) 0 mg/dL 06/17/23 11:00 Urine Ketones (Auto) Negative 06/17/23 11:00 Urine Blood (Auto) 80 Carlos/uL 06/17/23 11:00 Urine Nitrite (Auto) Negative 06/17/23 11:00 Urine Bilirubin (Auto) 0 mg/dL 06/17/23 11:00 Urine Urobilinogen (Auto) 0.2 mg/dL 06/17/23 11:00 Leukocyte Esterase (Auto) 125 Onel/uL 06/17/23 11:00 Date of Service: 05/26/23 EXAMINATION: CT ABDOMEN AND PELVIS WITHOUT AND WITH CONTRAST CLINICAL INFORMATION: Gross hematuria. COMPARISON: None available. TECHNIQUE: Noncontrast CT of the abdomen and pelvis is performed followed by split bolus contrast-enhanced images using 85 mL Omnipaque 350 contrast.? Postcontrast imaging is performed during the combined nephrogram and excretion phase. Sagittal and coronal reformatted images were obtained on the technologist's workstation for both the precontrast and postcontrast phases. This CT examination was performed using dose optimization techniques as appropriate, variously including the following: *Automated exposure control *Adjustment of mA and/or kV according to patient size (this includes techniques or standardized protocols for targeted exams where dose is matched to indication/reason for exam; i.e. extremities or head) *Use of iterative reconstruction technique DLP: 1202 mGy-cm FINDINGS: LUNG BASES: There is bibasilar dependent hypoaeration. LIVER, GALLBLADDER, AND BILIARY TREE: The liver is normal in size, shape, and attenuation. No focal hepatic lesion or biliary ductal dilatation is present. The gallbladder is unremarkable with no evidence of radiopaque gallstones, gallbladder wall thickening, or obvious pericholecystic inflammatory changes. PANCREAS: Unremarkable. SPLEEN: Unremarkable. ADRENAL GLANDS: Unremarkable. KIDNEYS AND URETERS: The kidneys are normal in size, shape, and attenuation. There is a right extrarenal pelvis. No hilar hydronephrosis, hydroureter, or calculi seen. No perinephric stranding. BLADDER: Unremarkable. GASTROINTESTINAL TRACT: The small and large bowel are unremarkable. The appendix is unremarkable. ABDOMINAL WALL: There are small fat-containing bilateral inguinal hernias. LYMPH NODES: Normal. VASCULAR: Unremarkable. PELVIC VISCERA: The prostate and seminal vessicles are unremarkable. OSSEUS STRUCTURES: At L3-L4, there is moderate degenerative disc disease, with disc space narrowing, vacuum disc phenomenon at and anterior spondylosis. No acute or aggressive osseous finding is seen. IMPRESSION: No significant abnormality. Assessment & Plan Assessment & Plan (1) Gross hematuria: Code(s): R31.0 - Gross hematuria (2) Nicotine dependence: Code(s): F17.200 - Nicotine dependence, unspecified, uncomplicated Plan Plan- pt requests cystoscopy as outpatient due to anxiety. Will schedule with Dr. Ulrich Orders: Orders AMB Urinalysis Automated 06/17/23 R33.9 - Retention of urine, unspecified Patient Instructions: The patient had an opportunity to ask questions regarding treatment plan. All questions were answered. Imaging, Laboratory studies and physical exam results were discussed and reviewed in detail. No major barriers to understanding were identified. The patient expressed understanding and agreement with the above treatment plan. The patient is aware they should contact our office by phone for worsening of their current condition or the appearance of new symptoms. Compliance is encouraged with any medications and followup testing that is ordered. It is a privilege to be allowed the opportunity to participate in the urologic care of your patient. If you have any questions or concerns regarding treatment for the above conditions please do not hesitate to contact me. The office telephone contact is [phone]. This note is constructed in part using voice recognition software. While every effort has been made to ensure accuracy solar sales assessor errors may have been included. Yours sincerely, Ilya Villalta MD Coding Level of Care Code Est Pt Level 4 (55918) Diagnoses Gross hematuria R31.0 Nicotine dependence F17.200
== END 2023-06-17 12:34 | disposition home or self-care (01) ==
LOC: HO.HUSH 10:38
PROVIDERS: PCP Nurse Practitioner Family; Visit Provider Urology
DX: R31.0 Gross hematuria (principal); F17.200 Nicotine dependence, unspecified, uncomplicated
CPT/HCPCS: 99214

== ENCOUNTER → 2023-06-17 10:37 | Outpatient (BNVA) | payer OTHER, SELFPAY | PROVIDERS: PCP Nurse Practitioner Family; Visit Provider Urology | DX: R31.0 Gross hematuria (principal); F17.210 Nicotine dependence, cigarettes, uncomplicated | CPT/HCPCS: 81003; 99212 ==

== ENCOUNTER 2023-06-23 07:50 | Outpatient (AMB) | payer OTHER, SELFPAY ==
--- NOTE | 2023-06-23 07:21 | A.OFFPC_ITS ---
Intake Visit Reasons: Discuss CT Scan Results [phone] Allergies No Known Allergies Allergy (Verified 06/23/23 07:36) Medication List - Last Reconciled 06/23/23 by HAILEY Hahn No Known Home Meds Tobacco use date assessed: 12/30/[address] Scan Results [phone] HPI Details Pt has a hx of micro hem. He is a smoker. Cytology was negative. CT urogram showed no significant abnormality. Pt was scheduled for a cystoscopy but he would like to be put under. Pt does report some pus from his penis. Pt did not feel comfortable with the urology team he saw, will refer to different provider. CT did show bibasilar dependent hypoaeration. Will order chest XR. Denies fever, chills, chest pain, and shortness of breath. [facility] Family History Father Substance use disorder Brother Substance use disorder Mental health disorder Mother Mental health disorder Brother Mental health disorder Maternal Uncle Mental health disorder Paternal Uncle Mental health disorder Social History Housing: Apartment Patient Tobacco Use Status: Current everyday Tobacco user Tobacco use type: Cigarette Cigarettes Per Day: 3 e-Cigarette/Vaping Use: Never Used Second Hand Smoke Exposure: No service: No Current occupational status: employed Current occupation: [employer] Current occupational exposures/hazards: No Cognitive needs: No Hearing needs: No Vision needs: No Questionnaire Thrive Questionnaire Date Thrive assessed: 12/30/22 MAYE-7 AMB Questionnaire MAYE-7 Date MAYE - 7 assessed: 12/30/22 Source: Developed by Drs. Loy Burks, Ani Mederos, Chaitanya Lauren and colleagues, with an educational marko from [employer]. Review of Systems Const Reports as per HPI Physical exam (Primary Care) Tobacco/Smoking Status: Tobacco use Status Tobacco use date assessed 12/30/22 06/23/23 07:21 Patient Tobacco Use Status Current everyday Tobacco 06/23/23 07:21 Tobacco use type Cigarette 06/23/23 07:21 e-Cigarette/Vaping Use Never Used 06/23/23 07:21 Thrive Assessment: Date of Thrive Assessment Date Thrive assessed 12/30/22 06/23/23 07:21 Const General: cooperative Orientation/consciousness: patient oriented x3 Neuro General: patient oriented x3 Psych Appearance: grossly normal Mental Status: mental status grossly normal Speech and movement: Clear speech present Affect: normal affect Attitude: cooperative Thought process: Normal thought process present Thought content: Normal thought content present Insight: Good insight present (Psych) Judgement: Good judgement present (Psych) Telehealth Telehealth Location of provider rendering services: practice address Location of patient: address on file Patient Identification confirmed using: Name, : Yes Telehealth method: video Patient verbally consented to treatment: Yes Patient verbally consented to billing insurance company: Yes Patient informed of any privacy concerns related to visit: Yes Minutes spent on Phone/Video with Pt.: 15 Assessment and Plan Assessment & Plan (1) Microscopic hematuria: Code(s): R31.29 - Other microscopic hematuria Plan: Referred to urology (2) Penile discharge: Code(s): R36.9 - Urethral discharge, unspecified Plan: Referred to urology (3) Abnormal findings on diagnostic imaging of lung: Code(s): R91.8 - Other nonspecific abnormal finding of lung field Plan: XR ordered Plan The patient agreed to the use of a medical program specialist for this encounter. Scribed for HAILEY Eddy by jesika Keys scribe, on 06/23/2023 at 07:20 EST. Orders: Orders XR chest 2V Today Referrals Urology Referral R31.29 - Other microscopic hematuria, R36.9 - Urethral discharge, unspecified Coding Level of Care Code Tele Est Pt Level 3 (71204) Diagnoses Microscopic hematuria R31.29 Penile discharge R36.9 Abnormal findings on diagnostic imaging of lung R91.8
== END 2023-06-23 09:17 | disposition home or self-care (01) ==
LOC: HO.HMGC 07:50
PROVIDERS: PCP Nurse Practitioner Family; Visit Provider Nurse Practitioner Family
DX: R31.29 Other microscopic hematuria (principal); R36.9 Urethral discharge, unspecified; R91.8 Other nonspecific abnormal finding of lung field
CPT/HCPCS: 99213

== ENCOUNTER → 2024-06-07 08:21 | Outpatient (BNVA) | payer OTHER, SELFPAY | PROVIDERS: PCP Nurse Practitioner Family; Visit Provider Nurse Practitioner Family | DX: Z00.00 Encounter for general adult medical examination without abnormal findings (principal) | CPT/HCPCS: 96127; 99395 ==